=== PATIENT | female | born 1980 | race American Indian/Alaskan Native ===

== ENCOUNTER 2017-09-15 14:15 | Outpatient (CLI) | payer BC ==
--- NOTE | 2017-09-16 08:24 | Mammography Report ---
BILATERAL DIGITAL SCREENING MAMMOGRAM with CAD: 09/15/17 14:15:00 CLINICAL: Routine screening. COMPARISON:04/12/16 and mammograms going back to 08/17/12. FINDINGS: The breasts are mostly fatty with bilateral residual retroareolar fibroglandular densities. Left retroareolar asymmetry on the MLO view requires additional imaging. No architectural distortion or suspicious calcifications.The right breast is negative. IMPRESSION: Left asymmetry requiring further workup. BI-RADS CATEGORY: 0 -- Additional Imaging Evaluation Required RECOMMENDATION: Recall for left true lateral and spot compression MLO views and left breast ultrasound if needed. ACR BI-RADS MAMMOGRAPHIC CODES: 0 = Needs additional imaging evaluation; 1 = Negative; 2 = Benign; 3 = Probably benign; 4 = Suspicious; 5 = Malignant; 6 = Known biopsy-proven malignancy COMMENT: 1. Dense breast tissue, i.e., adenosis, fibrocystic changes, etc., may obscure an underlying neoplasm. 2. Approximately 10% of cancers are not detected with mammography. 3. A negative mammography report should not delay biopsy if a clinically suspicious mass is present. COMMENT: Patient follow-up letters are generated via our [employer] application.
== END 2017-09-15 14:16 | disposition home or self-care (01) ==
LOC: SPVWC 14:15
PROVIDERS: ATTEND General Practice
DX: Z12.31 Encounter for screening mammogram for malignant neoplasm of breast (principal)
CPT/HCPCS: 77067; G0202

== ENCOUNTER 2018-04-12 14:37 | Outpatient (CLI) | payer MEDICAID ==
--- NOTE | 2018-04-12 15:44 | Ultrasound Report ---
LEFT DIGITAL DIAGNOSTIC MAMMOGRAM with CAD and BREAST ULTRASOUND: 04/12/18 CLINICAL: Left breast pain. COMPARISON:09/28/17 FINDINGS: The breast is heterogeneously dense, which may obscure small masses. The fibroglandular pattern is stable.No mass, architectural distortion or suspicious calcifications. Ultrasound of the left breast (including all four quadrants and the retroareolar area) was performed. A benign retroareolar cyst at 12 o'clock measures 6 x 2 x 6 mm. Mild retroareolar duct ectasia. No mass or shadowing. IMPRESSION: A benign cyst and benign duct ectasia. BI-RADS CATEGORY: 2 -- Benign RECOMMENDATION: Clinical followup and routine mammographic screening. COMMENT: Patient follow-up letters are generated by our [employer] application.
== END 2018-04-12 14:38 | disposition home or self-care (01) ==
LOC: SPVWC 14:37
PROVIDERS: ATTEND Hospitalist
DX: N60.01 Solitary cyst of right breast (principal); N60.42 Mammary duct ectasia of left breast

== ENCOUNTER 2019-06-14 15:02 | Outpatient (CLI) | payer MEDICAID ==
--- NOTE | 2019-06-14 17:06 | Ultrasound Report ---
BILATERAL DIGITAL DIAGNOSTIC MAMMOGRAM WITH CAD 06/14/2019 LEFT BREAST ULTRASOUND INDICATION: Bilateral breast pain and a left palpable breast lump. TECHNIQUE: Digital bilateral mammographic imaging was performed. This examination was interpreted wi th the benefit of Computer-Aided Detection (CAD) analysis. COMPARISON: 09/28/2018 FINDINGS: Breast Density: The breasts are heterogeneously dense, which may obscure small masses. There is no evidence of dominant mass, suspicious calcifications or architectural distortion in eithe r breast. Ultrasound Findings: Targeted ultrasound evaluation was performed of the area of interest. Ultrasou nd at 11:00 to 10:00 3 cm from the nipple demonstrates normal structures with no mass, cyst or shadow ing. IMPRESSION: Negative mammogram and negative left breast ultrasound. Recommend clinical follow-up and routine mammographic screening in one year. BI-RADS Category 1: Negative. Recommend routine screening mammography in one year. A "normal" or negative report should not discourage follow up or biopsy of a clinically significant f inding. A written summary of these findings will be mailed to the patient. The patient will be entered into a mammography reporting system which will generate a reminder letter for the patient's next appointmen t at the appropriate interval. FURTHER INFORMATION: According to the [employer], yearly mammograms are recommend ed starting at age 40 and continuing as long as a woman is in good health. Breast MRI is recommended for women with an approximately 20-25% or greater lifetime risk of breast cancer, including women wi th a strong family history of breast or ovarian cancer and women who have been treated for Hodgkin's disease. Signer Name: Naif Turpin MD Signed: 06/14/2019 5:02 PM Workstation Name: [id number]
== END 2019-06-14 15:03 | disposition home or self-care (01) ==
LOC: SPVWC 15:02
PROVIDERS: ATTEND Hospitalist
DX: N63.10 Unspecified lump in the right breast, unspecified quadrant (principal)
CPT/HCPCS: 77066

== ENCOUNTER 2019-10-16 13:00 | Outpatient (CLI) | payer MEDICAID ==
--- NOTE | 2019-10-17 10:55 | Mammography Report ---
DIGITAL SCREENING MAMMOGRAM WITH CAD, 10/16/2019 INDICATION: Routine screening mammography. TECHNIQUE: Digital bilateral 2D mammography was obtained in the craniocaudal and mediolateral obliq ue projections. This examination was interpreted with the benefit of Computer-Aided Detection analysi s. COMPARISON: 06/14/2019 FINDINGS: Breast Density: The breasts are heterogeneously dense, which may obscure small masses. There is no evidence of dominant mass, suspicious calcifications or architectural distortion in eithe r breast. IMPRESSION: No mammographic evidence of malignancy. Follow up recommendation: Routine yearly BI-RADS Category 1: Negative. A "normal" or negative report should not discourage follow up or biopsy of a clinically significant f inding. A written summary of these findings will be mailed to the patient. The patient will be entered into a mammography reporting system which will generate a reminder letter for the patient's next appointmen t at the appropriate interval. The [employer] recommends yearly mammograms starting at age 40 and continuing as l raymond as a woman is in good health. Breast MRI is recommended for women with an approximate 20-25% or greater lifetime risk of breast cancer, including women with a strong family history of breast or ova cholo cancer or who have been treated for Hodgkin's disease. Signer Name: Naif Turpin MD Signed: 10/17/2019 10:51 AM Workstation Name: [id number]
== END 2019-10-16 13:01 | disposition home or self-care (01) ==
LOC: SPVWC 13:00
PROVIDERS: ATTEND Hospitalist
DX: Z12.31 Encounter for screening mammogram for malignant neoplasm of breast (principal)
CPT/HCPCS: 77067

== ENCOUNTER 2020-10-21 11:48 | Outpatient (CLI) | payer MEDICAID ==
--- NOTE | 2020-10-22 15:27 | Mammography Report ---
DIGITAL SCREENING MAMMOGRAM WITH CAD, 10/22/2020 CLINICAL INFORMATION / INDICATION: Routine screening mammography. TECHNIQUE: Digital bilateral 2D mammography was obtained in the craniocaudal and mediolateral obliqu e projections. This examination was interpreted with the benefit of Computer-Aided Detection analysis . COMPARISON: 10/16/2019 FINDINGS: Breast Density: The breasts are heterogeneously dense, which may obscure small masses. No dominant mass, suspicious calcifications, or architectural distortion in either breast. IMPRESSION: No mammographic evidence of malignancy. Follow up recommendation: Routine yearly BI-RADS Category 1: Negative. A "normal" or negative report should not discourage follow up or biopsy of a clinically significant f inding. A written summary of these findings will be mailed to the patient. The patient will be entered into a mammography reporting system which will generate a reminder letter for the patient's next appointmen t at the appropriate interval. The [employer] recommends yearly mammograms starting at age 40 and continuing as l raymond as a woman is in good health. Breast MRI is recommended for women with an approximate 20-25% or greater lifetime risk of breast cancer, including women with a strong family history of breast or ova cholo cancer or who have been treated for Hodgkin's disease. Signer Name: Derrick Dumont MD Signed: 10/22/2020 3:23 PM Workstation Name: [id number]
== END 2020-10-21 11:49 | disposition home or self-care (01) ==
LOC: SPVWC 11:48
PROVIDERS: ATTEND General Practice
DX: Z12.31 Encounter for screening mammogram for malignant neoplasm of breast (principal)
CPT/HCPCS: 77067

== ENCOUNTER 2021-10-26 11:08 | Outpatient (CLI) | payer MEDICAID ==
--- NOTE | 2021-10-26 17:34 | Mammography Report ---
DIGITAL SCREENING MAMMOGRAM WITH CAD, 10/26/2021 CLINICAL INFORMATION / INDICATION: Routine screening mammography. SCREENING MAMMO Z12.31 TECHNIQUE: Digital bilateral 2D mammography was obtained in the craniocaudal and mediolateral obliqu e projections. This examination was interpreted with the benefit of Computer-Aided Detection analysis . COMPARISON: 10/21/2020, 09/28/2018 FINDINGS: Breast Density: There are scattered areas of fibroglandular density. No dominant mass, suspicious calcifications, or architectural distortion in either breast. IMPRESSION: No mammographic evidence of malignancy. Follow up recommendation: Routine yearly BI-RADS Category 1: Negative. A "normal" or negative report should not discourage follow up or biopsy of a clinically significant f inding. A written summary of these findings will be mailed to the patient. The patient will be entered into a mammography reporting system which will generate a reminder letter for the patient's next appointmen t at the appropriate interval. The [employer] recommends yearly mammograms starting at age 40 and continuing as l raymond as a woman is in good health. Breast MRI is recommended for women with an approximate 20-25% or greater lifetime risk of breast cancer, including women with a strong family history of breast or ova cholo cancer or who have been treated for Hodgkin's disease. Signer Name: Alfredo Guthrie MD Signed: 10/26/2021 5:30 PM Workstation Name: [id number]
== END 2021-10-26 11:09 | disposition home or self-care (01) ==
LOC: SPVWC 11:08
PROVIDERS: ATTEND Hospitalist
DX: Z12.31 Encounter for screening mammogram for malignant neoplasm of breast (principal); N64.89 Other specified disorders of breast
CPT/HCPCS: 77067